=== PATIENT | male | born 1970 | race Two or more races ===

== ENCOUNTER 2022-10-05 06:20 | Emergency (ER) | payer OTHER, SELFPAY ==
--- NOTE | ~2022-10-05 | CT_ITS ---
EXAMINATION: CT HEAD WITHOUT CONTRAST CLINICAL INFORMATION: Headache COMPARISON: None available. TECHNIQUE: Contiguous axial imaging was performed from the skull base to vertex without intravenous administration of contrast. This CT examination was performed using dose optimization techniques as appropriate, variously including the following: *Automated exposure control *Adjustment of mA and/or kV according to patient size (this includes techniques or standardized protocols for targeted exams where dose is matched to indication/reason for exam; i.e. extremities or head) *Use of iterative reconstruction technique DLP: 653 mGy-cm FINDINGS: No intracranial hemorrhage, extra-axial surface collection, focal mass effect or midline shift. Atherosclerotic calcification of proximal intradural segments of vertebral arteries and cavernous carotid arteries. The patchy areas of hypoattenuation within supratentorial white matter are compatible with sequela of mild microangiopathy. The lacunar infarct in region of the proximal right crane radiata is likely old or subacute. There are no comparison head CT exams. Mild parenchymal loss with commensurate prominence of ventricles and sulci; no hydrocephalus. The cerebellum and brainstem are unremarkable. The calvarium is intact. The mastoid air cells are well aerated. Temporomandibular joints are normal. There is extensive mucosal thickening of both maxillary sinuses. Mild mucosal thickening of left sphenoid sinus and multiple bilateral ethmoid air cells. There appear to be hyperdense, inspissated secretions within the partially visualized right maxillary sinus. There are areas of mild thickening of the galea aponeurotica of the frontal and parietal scalp that require clinical correlation since these could be sequela of recent or remote trauma. There is no large scalp hematoma. CT/CT head/brain wo IV con IMPRESSION: * No evidence of intracranial mass or hemorrhage. 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 There is likely an old lacunar infarct within the right crane radiata. * Paranasal sinus disease with extensive mucosal thickening of the partially visualized maxillary sinuses. Inspissated secretions are present within the right maxillary sinus.
[2022-10-05 06:27] VITALS: BP 120/51; BP 153/80; PULSE 57; PULSE 86; RESP 16; TEMP 37; O2SAT 96; O2SAT 99; BMI 22.5
[2022-10-05 06:37] VITALS: BP 122/52; PULSE 59; RESP 18; O2SAT 99
--- NOTE | 2022-10-05 06:54 | ECG_ITS ---
Test Reason : CHEST PAIN Blood Pressure : / mmHG Vent. Rate : 053 BPM Atrial Rate : 053 BPM P-R Int : 194 ms QRS Dur : 118 ms QT Int : 454 ms P-R-T Axes : 071 090 090 degrees QTc Int : 426 ms Sinus bradycardia with frequent Premature ventricular complexes Possible Left atrial enlargement Rightward axis Left ventricular hypertrophy with Incomplete left bundle branch block Anteroseptal infarct , age undetermined Abnormal ECG No previous ECGs available Referred By: Shari Garcia Electronically Signed By:DIANA REBOLLAR MD
--- NOTE | 2022-10-05 07:23 | ED_ITS ---
HPI - General Adult General Chief complaint: Abdominal Pain Stated complaint: headache Time Seen by Provider: 10/05/22 06:30 Source: patient and RN notes reviewed Mode of arrival: ambulatory Limitations: no limitations History of Present Illness HPI narrative: This is a 52-year-old male, with a past medical history of diabetes, who presents emergency department with complaints of headache, vomiting, abdominal pain x3 days. Patient admits to having some chest pain and shortness of breath. He admits that he has not been taking his diabetic medication at home. A denies any sick contacts. He endorses diarrhea. He has had subjective fevers and chills. MD complaint: Abdominal pain, nausea, vomiting Onset (ago): day(s) Radiation: non-radiation Pain Consistency: constant Relieving factors: none Exacerbating factors: none Associated symptoms: chest pain, cough, fever/chills, headaches, loss of appetite, nausea/vomiting and shortness of breath Treatments prior to arrival: none Related Data Allergies Allergy/AdvReac Type Severity Reaction Status Date / Time No Known Allergies Allergy Unverified 01/20/20 17:14 [No Known Allergies*] Review of Systems Review of Systems: Constitutional: No Weight loss, + subjective Fevers, + Chills, No Night Sweats, No Fatigue, No Malaise ENT/Mouth: No Hearing loss, No Ear Pain, No Nasal Congestion, No Sinus Pain, No Hoarseness, No sore throat, No Rhinorrhea, No Swallowing Difficulty Eyes: No Eye Pain, No Swelling, No Redness, No Foreign Body, No Discharge, No Vision Changes Cardiovascular: + Chest Pain, + SOB, No Dyspnea on Exertion, No Orthopnea, No Edema, No Palpitations Respiratory: + Cough, No Sputum, No Wheezing, No Smoke Exposure, No Dyspnea Gastrointestinal: + Nausea, + Vomiting, + Diarrhea, No Constipation, +Abdominal pain, No Hematochezia, No Melena Genitourinary: No irregular bleeding, No Dysuria, No Urinary Frequency, No Hematuria, No Urinary Incontinence/retention, No Urgency, No Flank Pain, No Urinary Flow Changes, No Hesitancy Musculoskeletal: No joint pain, No Myalgias, No Joint Swelling Skin: No Skin Lesions, No rash Neuro: No Weakness, No Numbness, No Paresthesias, No Loss of Consciousness, No Dizziness, No Headache Psych: No Anxiety/Panic, No Depression, No SI/HI/AH/VH, No Social Issues, Heme/Lymph: No Bruising, No Bleeding,No Lymphadenopathy Endocrine: No Polyuria, No Polydipsia, No Temperature Intolerance Yes all other systems are reviewed and are negative Constitutional: Constitutional: Reports as per [facility] Social History Social History Alcohol intake: never Smoked in Last 30 Days: Yes Use of substances other than those prescribed or required for medical reasons: No Advance Directives: No Physical Exam ED Vital Signs: Vital Signs - 24 hr 10/05/22 06:27 10/05/22 06:37 10/05/22 07:30 Temperature 98.6 F Pulse Rate 57 59 53 Respiratory Rate 16 18 16 Blood Pressure 120/51 L 122/52 L 127/43 L Pulse Oximetry 99 99 Oxygen Delivery Method Room Air Room Air 10/05/22 10:00 Temperature 98.2 F Pulse Rate 57 Respiratory Rate 14 Blood Pressure 159/67 H Pulse Oximetry 95 Oxygen Delivery Method Room Air BMI result Body Mass Index 22.5 Const General: cooperative, comfortable and no acute distress Orientation/consciousness: patient oriented x3 Limitations: no limitations HENMT Head: Yes normal to inspection, Yes normocephalic and Yes atraumatic Ears: hearing grossly normal bilaterally General nose exam: Normal external nose present Face and sinus: Yes normal facial exam Mouth: oropharynx normal and mucous membranes dry (Dry mucous membranes) Throat: Yes posterior oropharynx normal Eyes General: appearance normal, both eyes and all related structures Eyelids: Yes eyelids normal Conjunctivae: conjunctivae normal Sclerae: sclerae normal Pupils: Equal, round and reactive pupils present EOM: EOMs intact bilaterally Neck Neck: Yes normal visual inspection, Yes full ROM and Yes no lymphadenopathy Lymphatic: no lymphadenopathy noted Chest Chest palpation & inspection: normal inspection of the chest Resp Other: Coarse lung sounds auscultated in the left lower lung base, no wheezes Effort & Inspection: normal respiratory effort and able to speak in complete sentences Cardio Rate: regular rate Rhythm: regular rhythm Heart sounds: S1 normal heart sound present and S2 normal heart sound present GI Inspection: Yes normal to inspection Skin General skin exam: no rashes or lesions noted Trauma: no lacerations or abrasions Wounds: no wounds Neuro General: patient oriented x3 and moves all extremities Cranial nerves: Yes Equal, round and reactive pupils present Extrem General: Yes normal to inspection Right upper extremity: normal to inspection Left upper extremity: normal to inspection Right lower extremity: normal to inspection Left lower extremity: normal to inspection Course Reevaluation(s) Reevaluation #1: Patient re-evaluated, still reporting severe head pain, moaning in pain, morphine 4mg IV and CT head ordered. Vital signs stable, central stores attendant at bed side. Time: 08:36 Reevaluation #2: Patient's pain improved after receiving morphine, 2 L of IV fluids. Patient is COVID positive today which explains his symptoms. no leukocytosis, VBG within normal limits, mildly elevated glucose at 1:48 a.m. which was nonfasting, troponin 3.3. Will not repeat second troponin as patient's symptoms have been ongoing for the last 3 days, and symptoms consistent with COVID-19 infection. Patient feeling better although still complaining of body aches and chills. Which is consistent with COVID infection, will medicate with Toradol 30 mg IM, patient is stable for discharge. CT head negative. Time: 12:17 Medications Administered Discontinued Medications Generic Name Dose Route Start Last Admin Trade Name Freq PRN Reason Stop Dose Admin Sodium Chloride 1,000 mls @ 999 mls/hr 10/05/22 06:54 10/05/22 08:54 Ns IV 10/05/22 07:54 Infused .Q1H1M ONE Infusion Sodium Chloride 1,000 mls @ 999 mls/hr 10/05/22 08:25 10/05/22 08:58 Ns IV 10/05/22 09:25 Infused .Q1H1M ONE Infusion Ketorolac Tromethamine 30 mg 10/05/22 12:04 10/05/22 12:34 Ketorolac Tromethamine 30 Mg/Ml Vial IM 10/05/22 12:05 30 mg ONCE ONE Administration Morphine Sulfate 4 mg 10/05/22 06:53 10/05/22 07:27 Morphine Sulfate 4 Mg/Ml Cartridge IVPUSH 10/05/22 06:54 4 mg ONCE ONE Administration Protocol Morphine Sulfate 4 mg 10/05/22 08:32 10/05/22 08:57 Morphine Sulfate 4 Mg/Ml Cartridge IVPUSH 10/05/22 08:33 4 mg ONCE ONE Administration Protocol Ondansetron HCl 4 mg 10/05/22 06:53 10/05/22 07:27 Ondansetron Hcl 4 Mg/2 Ml Vial IVPUSH 10/05/22 06:54 4 mg ONCE ONE Administration Ondansetron HCl 4 mg 10/05/22 12:29 10/05/22 12:34 Ondansetron Hcl 4 Mg/2 Ml Vial IVPUSH 10/05/22 12:30 4 mg ONCE ONE Administration Medical Decision Making Medical Decision Making [facility] Narrative: 52-year-old male, with a past medical history of diabetes, presenting to the emergency department for evaluation of abdominal pain, nausea, vomiting, chest pain, shortness of breath for the last 3 days. On examination, patient is mildly hypotensive at 120/51, pulse 57, respirations 16, patient afebrile oxygen saturation 99% room air. Patient moaning in stretcher, however patient is fully neurologically intact. Diffuse abdominal tenderness without any point tenderness to palpation. Normoactive bowel sounds present. Dry mucous membranes. Coarse lung sounds heard in the left lower base, will obtain chest x-ray for further evaluation of this. Plan: Labs, EKG, chest x-ray, IV fluids, morphine 4 mg IV, Zofran 4 mg IV push Differential Diagnosis Differential Diagnoses: The differential diagnosis associated with the presentation includes Gastroenteritis, gastritis, DKA, NBA, pneumonia Admission/Observation Consideration of admission/observation: Escalation of care including admis bossman/observation considered Lab Data [facility] Lab Attestation statement: I reviewed the patient's lab results. 10/05/22 07:47 10/05/22 07:47 Labs: Lab Results 10/05/22 10/05/22 10/05/22 Range/Units 07:47 07:47 07:47 WBC 6.9 (4.8-10.8) X10*3/uL RBC 5.69 (4.60-5.80) X10*6/uL Hgb 15.2 (14.0-18.0) g/dl Hct 47.1 (42.0-52.0) % MCV 82.8 (80.0-98.0) fL MCH 26.7 L (27.0-33.0) pg MCHC 32.3 (31.0-36.0) g/dl RDW 14.5 (11.0-16.0) % Plt Count 167 (160-400) X10*3/uL MPV 10.0 (9.4-12.4) fL Immature Gran % (Auto) 0.1 (0.0-0.4) % Neut % (Auto) 81.1 H (45-73) % Lymph % (Auto) 8.5 L (20-40) % [place] % (Auto) 10.2 (2-11) % Eos % (Auto) 0.0 (0-4) % Baso % (Auto) 0.1 (0-2) % Lymph # (Auto) 0.6 L (1.2-4.9) X10*3/uL [place] # (Auto) 0.7 (0.1-1.2) X10*3/uL Eos # (Auto) 0.0 (0.0-0.4) X10*3/uL Baso # (Auto) 0.0 (0.0-0.2) X10*3/uL Abs Immat Gran (auto) 0.01 (0.00-0.03) X10*3/uL Absolute Neuts (auto) 5.6 (2.0-8.3) x10*3/uL Absolute Nucleated RBC 0.000 (0.0-0.012) X10*3/uL Nucleated RBC % (auto) 0.0 (0.0-0.2) /100WBC VBG pH (7.32-7.43) VBG pCO2 mmHg VBG pO2 mmHg VBG HCO3 (22-26) mmol/L VBG O2 Saturation % VBG Base Excess mmol/L Sodium 145 (135-145) mmol/L Potassium 3.8 (3.3-5.1) mmol/L Chloride 108 (96-108) mmol/L Carbon Dioxide 28 (22-29) mmol/L Anion Gap 13 (12-20) BUN 20 H (9-16) mg/dL Creatinine 1.29 (0.5-1.4) mg/dL Estim Creat Clear Calc 56.6 Estimated GFR 58 Random Glucose 148 H (60-115) mg/dL Calcium 9.2 (8.4-10.2) mg/dL Magnesium 2.3 (1.6-2.6) mg/dL Total Bilirubin 0.5 (0.0-1.0) mg/dL Direct Bilirubin 0.1 (0.0-0.5) mg/dL AST 14 (5-37) U/L ALT 13 (0-40) U/L Alkaline Phosphatase 101 (39-117) U/L Troponin I High Sens 3.3 (<3.5-35.0) ng/L Total Protein 7.4 (6.5-8.0) g/dL Albumin 4.2 (3.5-5.0) g/dL Lipase 24 (8-78) U/L Urine Color Urine Appearance Urine pH (5.0-9.0) Ur Specific [place] (1.005-1.025) Urine Protein (Neg-Trace) mg/dL Urine Glucose (UA) (Negative) mg/dL Urine Ketones (Negative) mg/dL Urine Blood (Negative) Urine Nitrite (Negative) Ur Leukocyte Esterase (Negative) Urine RBC (0-2) /HPF Urine WBC (0-5) /HPF Ur Squamous Epith Cells (0-2) /HPF Urine Bacteria (None Seen) Hyaline Casts (0-2) /LPF Acetone, Qual Negative (Negative) Influenza Type A (PCR) (Negative) Influenza Type B (PCR) (Negative) RSV RNA Qual (PCR) (Negative) SARS-CoV-2 RNA (RT-PCR) (Negative) 10/05/22 10/05/22 10/05/22 Range/Units 07:47 07:51 09:33 WBC (4.8-10.8) X10*3/uL RBC (4.60-5.80) X10*6/uL Hgb (14.0-18.0) g/dl Hct (42.0-52.0) % MCV (80.0-98.0) fL MCH (27.0-33.0) pg MCHC (31.0-36.0) g/dl RDW (11.0-16.0) % Plt Count (160-400) X10*3/uL MPV (9.4-12.4) fL Immature Gran % (Auto) (0.0-0.4) % Neut % (Auto) (45-73) % Lymph % (Auto) (20-40) % [place] % (Auto) (2-11) % Eos % (Auto) (0-4) % Baso % (Auto) (0-2) % Lymph # (Auto) (1.2-4.9) X10*3/uL [place] # (Auto) (0.1-1.2) X10*3/uL Eos # (Auto) (0.0-0.4) X10*3/uL Baso # (Auto) (0.0-0.2) X10*3/uL Abs Immat Gran (auto) (0.00-0.03) X10*3/uL Absolute Neuts (auto) (2.0-8.3) x10*3/uL Absolute Nucleated RBC (0.0-0.012) X10*3/uL Nucleated RBC % (auto) (0.0-0.2) /100WBC VBG pH 7.40 (7.32-7.43) VBG pCO2 44 mmHg VBG pO2 43 mmHg VBG HCO3 28 H (22-26) mmol/L VBG O2 Saturation 72.0 % VBG Base Excess 2.6 mmol/L Sodium (135-145) mmol/L Potassium (3.3-5.1) mmol/L Chloride (96-108) mmol/L Carbon Dioxide (22-29) mmol/L Anion Gap (12-20) BUN (9-16) mg/dL Creatinine (0.5-1.4) mg/dL Estim Creat Clear Calc Estimated GFR Random Glucose (60-115) mg/dL Calcium (8.4-10.2) mg/dL Magnesium (1.6-2.6) mg/dL Total Bilirubin (0.0-1.0) mg/dL Direct Bilirubin (0.0-0.5) mg/dL AST (5-37) U/L ALT (0-40) U/L Alkaline Phosphatase (39-117) U/L Troponin I High Sens (<3.5-35.0) ng/L Total Protein (6.5-8.0) g/dL Albumin (3.5-5.0) g/dL Lipase (8-78) U/L Urine Color Yellow Urine Appearance Clear Urine pH 5.5 (5.0-9.0) Ur Specific [place] >= 1.030 H (1.005-1.025) Urine Protein 300 (3+) H (Neg-Trace) mg/dL Urine Glucose (UA) >=1000 H (Negative) mg/dL Urine Ketones 15 (Negative) mg/dL Urine Blood Trace H (Negative) Urine Nitrite Negative (Negative) Ur Leukocyte Esterase Negative (Negative) Urine RBC 0-2 (0-2) /HPF Urine WBC 0-5 (0-5) /HPF Ur Squamous Epith Cells 0-2 (0-2) /HPF Urine Bacteria None Seen (None Seen) Hyaline Casts 0-2 (0-2) /LPF Acetone, Qual (Negative) Influenza Type A (PCR) NEGATIVE (Negative) Influenza Type B (PCR) NEGATIVE (Negative) RSV RNA Qual (PCR) NEGATIVE (Negative) SARS-CoV-2 RNA (RT-PCR) POSITIVE A (Negative) Radiology Impression Discussion of test interpretation with radiology: I have reviewed the radiologist's reading. Radiologist Impression: EXAMINATION: CT HEAD WITHOUT CONTRAST CLINICAL INFORMATION: Headache? COMPARISON: None available. TECHNIQUE: Contiguous axial imaging was performed from the skull base to vertex without intravenous administration of contrast. This CT examination was performed using dose optimization techniques as appropriate, variously including the following: *Automated exposure control *Adjustment of mA and/or kV according to patient size (this includes techniques or standardized protocols for targeted exams where dose is matched to indication/reason for exam; i.e. extremities or head) *Use of iterative reconstruction technique DLP: 653 mGy-cm FINDINGS: No intracranial hemorrhage, extra-axial surface collection, focal mass effect or midline shift. Atherosclerotic calcification of proximal intradural segments of vertebral arteries and cavernous carotid arteries. The patchy areas of hypoattenuation within supratentorial white matter are compatible with sequela of mild microangiopathy. The lacunar infarct in region of the proximal right crane radiata is likely old or subacute. There are no comparison head CT exams. Mild parenchymal loss with commensurate prominence of ventricles and sulci; no hydrocephalus. The cerebellum and brainstem are unremarkable. The calvarium is intact. The mastoid air cells are well aerated. Temporomandibular joints are normal. There is extensive mucosal thickening of both maxillary sinuses. Mild mucosal thickening of left sphenoid sinus and multiple bilateral ethmoid air cells. There appear to be hyperdense, inspissated secretions within the partially visualized right maxillary sinus. There are areas of mild thickening of the galea aponeurotica of the frontal and parietal scalp that require clinical correlation since these could be sequela of recent or remote trauma. There is no large scalp hematoma. ? CT/CT head/brain wo IV con IMPRESSION: *? No evidence of intracranial mass or hemorrhage. *? 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 There is likely an old lacunar infarct within the right crane radiata. *? Paranasal sinus disease with extensive mucosal thickening of the partially visualized maxillary sinuses. Inspissated secretions are present within the right maxillary sinus. Dictated By: Robert Bhatia MD Signed By: <Electronically signed by Robert Bhatia MD in OV> 10/05/22 1025 DD/ 0935 TD/TT:? Histologist: External Record Review External record reviewed: Inpatient record, Office record, Outpatient record, Prior outpatient labs, Prior outpatient radiology, Primary care record and Outside ED record Discharge Plan Discharge Clinical Impression: COVID-19 Patient Disposition: Home, Self-Care Additional Instructions: You tested positive for COVID today which explains your symptoms. It is important to self isolate for the next 5 days is you are likely very contagious. Wear a mask when your around others. Please drink plenty of fluids get plenty of rest. Take ibuprofen or Tylenol as needed for your symptoms. Follow-up with your primary care physician. If any new or worsening symptoms occur please return for re-evaluation. Interventions: ED Discharge Assessment Last Done: 10/05/22 14:13 Discharge Date/Time: 10/05/22 14:14 Print Language: Filipino
[2022-10-05] MEDS: Morphine Sulfate 4 MG/ML CARTRIDGE IVPUSH ×2 (07:27→08:57)
[2022-10-05] MEDS: ondansetron HCL 4 MG/2 ML VIAL IVPUSH ×2 (07:27→12:34)
[2022-10-05] MEDS: 0.9 % Sodium Chloride 1,000 ML 999 ML IV ×2 (07:28→08:56)
[2022-10-05 07:30] VITALS: BP 127/43; PULSE 53; RESP 16
[2022-10-05 07:54] LABS: MANUAL DIFF FLAG NO
[2022-10-05 07:56] LABS: Basophils Percent Auto 0.1 % (0-2); Hematocrit 47.1 % (42.0-52.0); Hemoglobin 15.2 g/dl (14.0-18.0); Imm Gran Abs Auto 0.01 X10*3/uL (0.00-0.03); Imm Gran Pct Auto 0.1 % (0.0-0.4); Lymphocytes Absolute Auto 0.6 X10*3/uL (1.2-4.9); Lymphocytes Percent Auto 8.5 % (20-40); Mean Corpuscular HGB Conc 32.3 g/dl (31.0-36.0); Mean Corpuscular Hemoglobin 26.7 pg (27.0-33.0); Mean Corpuscular Volume 82.8 fL (80.0-98.0); Monocytes Absolute Auto 0.7 X10*3/uL (0.1-1.2); Monocytes Percent Auto 10.2 % (2-11); Neutrophils Absolute Auto 5.6 x10*3/uL (2.0-8.3); Neutrophils Percent Auto 81.1 % (45-73); Platelet Count 167 X10*3/uL (160-400); Red Blood Count 5.69 X10*6/uL (4.60-5.80); Red Cell Distribution Width 14.5 % (11.0-16.0); White Blood Count 6.9 X10*3/uL (4.8-10.8)
[2022-10-05 07:58] LABS: VBG Base Excess 2.6 mmol/L; VBG HCO3 28 mmol/L (22-26); VBG pCO2 44 mmHg; VBG pO2 43 mmHg
[2022-10-05 08:01] LABS: Venous Blood Gas Refer to POC result
[2022-10-05 08:15] LABS: Alanine Aminotransferase 13 U/L (0-40); Albumin Level 4.2 g/dL (3.5-5.0); Alkaline Phosphatase 101 U/L (39-117); Anion Gap 13 (12-20); Aspartate Amino Transferase 14 U/L (5-37); Bilirubin Direct 0.1 mg/dL (0.0-0.5); Bilirubin Total 0.5 mg/dL (0.0-1.0); Blood Urea Nitrogen 20 mg/dL (9-16); Calcium 9.2 mg/dL (8.4-10.2); Carbon Dioxide 28 mmol/L (22-29); Chloride 108 mmol/L (96-108); Creatinine Clr Calc Pharmacy 56.6; Estimated Glomerular Filt Rate 58; Glucose Random 148 mg/dL (60-115); Lipase 24 U/L (8-78); Magnesium 2.3 mg/dL (1.6-2.6); Potassium 3.8 mmol/L (3.3-5.1); Sodium 145 mmol/L (135-145); Total Protein 7.4 g/dL (6.5-8.0)
[2022-10-05 08:23] LABS: Troponin-I High Sensitivity 3.3 ng/L (<3.5-35.0)
[2022-10-05 08:27] LABS: Acetone, serum QL Negative (Negative)
[2022-10-05 08:35] LABS: Influenza A PCR NEGATIVE (Negative); Influenza B PCR NEGATIVE (Negative); Resp Syncy Virus RNA Qual PCR NEGATIVE (Negative); SARS COV2 PCR INHOUSE POSITIVE (Negative)
[2022-10-05 09:44] LABS: Appearance Urine Clear; Color Urine Yellow; Glucose Urine UA >=1000 mg/dL (Negative); Leukocyte Esterase Urine Negative (Negative); Nitrite Urine Negative (Negative); PH 5.5 (5.0-9.0); UMIC TRIGGER UACC YES; Urine Blood Trace (Negative); Urine Ketones 15 mg/dL (Negative); Urine Protein 300 (3+) mg/dL (Neg-Trace)
--- NOTE | 2022-10-05 09:52 | PC.NURSE ---
pt c/o 02/11 abd pain/n/v/d. he says that he has not been able to hold anything down for a few days. no exposure to anyone sick. 20g iv inserted prior to this rn's arrival on shift, line patent. meds given per ordered.
[2022-10-05 10:00] VITALS: BP 159/67; PULSE 57; RESP 14; TEMP 36.8; O2SAT 95
[2022-10-05 10:13] LABS: Bacteria Urine None Seen (None Seen); Hyaline Casts Urine 0-2 /LPF (0-2); RBC Urine 0-2 /HPF (0-2); Squamous Epithelial Cell Urine 0-2 /HPF (0-2); WBC Urine 0-5 /HPF (0-5)
[2022-10-05 10:14] LABS: Specific Gravity - Urine >= 1.030 (1.005-1.025)
[2022-10-05] MEDS: Ketorolac Tromethamine 30 MG/ML VIAL IM (12:34)
== END 2022-10-05 14:14 | disposition home or self-care (01) ==
PROVIDERS: Physician Assistant Medical; Emergency Provider Emergency Medicine
DX: R07.89 Other chest pain (principal); R51.9 Headache, unspecified; R50.9 Fever, unspecified; Z20.822 Contact with and (suspected) exposure to COVID-19; Z20.828 Contact with and (suspected) exposure to other viral communicable diseases; Z79.899 Other long term (current) drug therapy
CPT/HCPCS: 0241U; 36415; 70450; 80048; 80076; 81001; 82009; 82803; 83690; 83735; 84484; 85025; 93005; 96361; 96372; 96374; 96375; 96376; 99284; 99285; J1885; J2270; J2405

== ENCOUNTER 2024-05-27 01:50 | Emergency (ER) | payer OTHER, SELFPAY ==
--- NOTE | 2024-05-27 | ECG_ITS ---
Test Reason : CHEST PAIN Blood Pressure : */* mmHG Vent. Rate : 63 BPM Atrial Rate : 63 BPM P-R Int : 188 ms QRS Dur : 120 ms QT Int : 432 ms P-R-T Axes : 64 84 79 degrees QTcB Int : 442 ms Normal sinus rhythm Possible Left atrial enlargement Left ventricular hypertrophy with QRS widening ( [place] product ) Anterior infarct (cited on or before 05-Oct-2022) Abnormal ECG When compared with ECG of 05-Oct-2022 07:02, Premature ventricular complexes are no longer Present Referred By: Generic ED Physician Electronically Signed By: DIANA REBOLLAR MD
--- NOTE | ~2024-05-27 | XR_ITS ---
CLINICAL HISTORY: dyspnea 1 view chest x-ray Comparison: CR - RIBS RIGHT PA CHEST [id number] - 10/05/17 12:30 EDT Findings: The lungs are clear. Normal size heart. No acute fracture. IMPRESSION: 1. No acute findings. This document has been electronically signed by: Lon Jang MD on 05/27/2024 03:05:16
[2024-05-27 01:52] VITALS: BP 158/67; PULSE 96; O2SAT 98
[2024-05-27 02:05] VITALS: BP 115/51; PULSE 63; RESP 18; TEMP 36.7; O2SAT 96; BMI 25.2
[2024-05-27 02:08] VITALS: BP 115/51; PULSE 63; RESP 18; TEMP 36.7; O2SAT 96
[2024-05-27 02:34] LABS: Basophils Percent Auto 0.3 % (0-2); Eosinophils Absolute Auto 0.1 X10*3/uL (0.0-0.4); Eosinophils Percent Auto 1.9 % (0-4); Hematocrit 37.1 % (42.0-52.0); Hemoglobin 12.4 g/dl (14.0-18.0); Imm Gran Abs Auto 0.01 X10*3/uL (0.00-0.03); Imm Gran Pct Auto 0.1 % (0.0-0.4); Lymphocytes Absolute Auto 1.8 X10*3/uL (1.2-4.9); Lymphocytes Percent Auto 23.9 % (20-40); MANUAL DIFF FLAG NO; Mean Corpuscular HGB Conc 33.4 g/dl (31.0-36.0); Mean Corpuscular Volume 80.8 fL (80.0-98.0); Mean Platelet Volume 10.1 fL (9.4-12.4); Monocytes Absolute Auto 0.4 X10*3/uL (0.1-1.2); Monocytes Percent Auto 5.6 % (2-11); Neutrophils Absolute Auto 5.1 x10*3/uL (2.0-8.3); Neutrophils Percent Auto 68.2 % (45-73); Platelet Count 158 X10*3/uL (160-400); Red Blood Count 4.59 X10*6/uL (4.60-5.80); Red Cell Distribution Width 14.9 % (11.0-16.0); White Blood Count 7.5 X10*3/uL (4.8-10.8)
[2024-05-27 02:56] LABS: Alanine Aminotransferase 7 U/L (0-40); Albumin Level 3.6 g/dL (3.5-5.0); Alkaline Phosphatase 69 U/L (39-117); Anion Gap 12 (12-20); Aspartate Amino Transferase 19 U/L (5-37); Bilirubin Total 0.3 mg/dL (0.0-1.0); Blood Urea Nitrogen 19 mg/dL (9-16); Calcium 8.8 mg/dL (8.4-10.2); Carbon Dioxide 23 mmol/L (22-29); Chloride 111 mmol/L (96-108); Creatinine Clr Calc Pharmacy 70.7; Estimated Glomerular Filt Rate > 60; Glucose Random 77 mg/dL (60-115); Potassium 3.5 mmol/L (3.3-5.1); Sodium 142 mmol/L (135-145); Total Protein 6.6 g/dL (6.5-8.0)
[2024-05-27 03:11] LABS: Influenza A PCR NEGATIVE (Negative); Influenza B PCR NEGATIVE (Negative); Resp Syncy Virus RNA Qual PCR NEGATIVE (Negative); SARS COV2 PCR INHOUSE NEGATIVE (Negative)
[2024-05-27 04:34] VITALS: BP 125/59; PULSE 58; RESP 21; TEMP 37.2; O2SAT 100
[2024-05-27 05:37] LABS: Troponin-I High Sensitivity 5.5 ng/L (<3.5-35.0)
--- NOTE | 2024-05-27 06:27 | ED_ITS ---
HPI - Chest Pain General Chief Complaint: Chest Pain Stated Complaint: CP x 2hrs hx of HTN & diabetes Time Seen by Provider: 05/27/24 06:27 History of Present Illness ED Provider: Juvencio SEVERINO narrative: The patient is a 53-year-old male who arrived here by ambulance complaining of pressure-like chest pain that began 2 hours before arrival. He describes the discomfort as a pressure ?like an elephant on my chest. ?. The patient says that he has been having symptoms like this frequently during the last month. He says the symptoms tend to be most prominent at night. The pain is worse when he lies down he says. He says that he is on omeprazole already. No fever, sweats, chills. No cough or sputum. Related Data Previous Rx's ?Medication ?Instructions ?Recorded sucralfate 1 gram tablet 1 g PO BID PRN Chest discomfort 05/27/24 #30 tabs Allergies Allergy/AdvReac Type Severity Reaction Status Date / Time No Known Allergies Allergy Verified 05/27/24 02:08 [No Known Allergies*] Review of Systems 2 Review of Systems: Yes all other systems are reviewed and are negative [facility] Social History Social History Alcohol intake: never Smoked in Last 30 Days: No Use of substances other than those prescribed or required for medical reasons: Yes Substance Use Type: Marijuana Advance Directives: No Advance Directives Information Provided: Yes Physical Exam 2 Vital Signs: Vital Signs: Last Vital Signs Temp 97.8 F 05/27/24 07:57 Pulse 66 05/27/24 07:57 Resp 16 05/27/24 07:57 BP 137/74 05/27/24 07:57 Pulse Ox 97 05/27/24 07:57 O2 Del Method Room Air 05/27/24 07:57 BMI result Body Mass Index 25.2 Const: Other: The patient was sleeping. I was able to wake him up fairly easily. He awoke to a normal mental status. He did not appear in any distress. HEENT: Other: Face is symmetrical. Mucous membranes moist. Eyes: General: appearance normal, both eyes and all related structures C onjunctivae: conjunctivae normal EOM: EOMs intact bilaterally Neck: Neck: Yes full ROM and Yes no JVD Resp: Effort & Inspection: normal respiratory effort Auscultation: clear to auscultation bilaterally Cardio: Rate: regular rate Rhythm: regular rhythm Heart sounds: S1 normal heart sound present and S2 normal heart sound present GI: Other: Abdomen is soft and nontender Skin: General skin exam: no rashes or lesions noted Neuro: Other: The patient was asleep. He awoke easily with gentle stimulation. He awoke to a normal mental status. Cranial nerves are grossly intact. He moves his extremities normally and seems grossly neurologically intact. Extrem: Other: No calf swelling or tenderness, no peripheral edema, no asymmetry. Medications Administered Discontinued Medications Generic Name Dose Route Start Last Admin Trade Name Dilcia PRN Reason Stop Dose Admin Sucralfate 2 gm 05/27/24 06:40 05/27/24 06:57 Sucralfate Oral Suspension 1 Gm/10 Ml Oral.Susp PO 05/27/24 06:41 2 gm ONCE ONE Administration Medical Decision Making Medical Decision Making [facility] Narrative: The patient presents complaining of a pressure-like discomfort that he says he has been having for a month. He states that the symptoms are worse when he lies down. The patient says that his son drove him to the emergency room tonight. he does not appear acutely ill in any way. He seemed to be sleeping comfortably when I awoke him to interview him. He did not seem in discomfort or any kind of distress during the interview. His EKG shows normal sinus rhythm at 63 beats per minute. It is an abnormal EKG but similar to his previous EKG. His troponins are flat. His chest x-ray is clear. His vital signs are unremarkable. His physical exam seems reassuring. Based on his description of the symptoms being worse when he lies down I thought that perhaps he was experiencing acid reflux. he was given a dose of liquid sucralfate. At 1st the patient said this did not seem to help and he was concerned about his ongoing discomfort. At that point I told him we could check a D-dimer to make sure he did have a blood clot even though I had no significant clinical suspicion for a pulmonary embolism. At 1st the patient seemed to welcome further investigations but then he approached me before his additional blood was drawn and said that he was feeling better that he was happy going home. I will write him a prescription for sucralfate. He should follow up with his PCP. He should return if worse. Lab Data 05/27/24 02:28 05/27/24 02:28 Labs: Lab Results 05/27/24 05/27/24 05/27/24 Range/Units 02:27 02:28 05:11 WBC 7.5 (4.8-10.8) X10*3/uL RBC 4.59 L (4.60-5.80) X10*6/uL Hgb 12.4 L (14.0-18.0) g/dl Hct 37.1 L D (42.0-52.0) % MCV 80.8 (80.0-98.0) fL MCH 27.0 (27.0-33.0) pg MCHC 33.4 (31.0-36.0) g/dl RDW 14.9 (11.0-16.0) % Plt Count 158 L (160-400) X10*3/uL MPV 10.1 (9.4-12.4) fL Immature Gran % (Auto) 0.1 (0.0-0.4) % Neut % (Auto) 68.2 (45-73) % Lymph % (Auto) 23.9 (20-40) % Loup % (Auto) 5.6 (2-11) % Eos % (Auto) 1.9 (0-4) % Baso % (Auto) 0.3 (0-2) % Lymph # (Auto) 1.8 (1.2-4.9) X10*3/uL Loup # (Auto) 0.4 (0.1-1.2) X10*3/uL Eos # (Auto) 0.1 (0.0-0.4) X10*3/uL Baso # (Auto) 0.0 (0.0-0.2) X10*3/uL Abs Immat Gran (auto) 0.01 (0.00-0.03) X10*3/uL Absolute Neuts (auto) 5.1 (2.0-8.3) x10*3/uL Absolute Nucleated RBC 0.000 (0.0-0.012) X10*3/uL Nucleated RBC % (auto) 0.0 (0.0-0.2) /100WBC Sodium 142 (135-145) mmol/L Potassium 3.5 (3.3-5.1) mmol/L Chloride 111 H (96-108) mmol/L Carbon Dioxide 23 (22-29) mmol/L Anion Gap 12 (12-20) BUN 19 H (9-16) mg/dL Creatinine 0.95 (0.5-1.4) mg/dL Estim Creat Clear Calc 70.7 Estimated GFR > 60 Random Glucose 77 (60-115) mg/dL Calcium 8.8 (8.4-10.2) mg/dL Total Bilirubin 0.3 (0.0-1.0) mg/dL AST 19 (5-37) U/L ALT 7 (0-40) U/L Alkaline Phosphatase 69 (39-117) U/L Troponin I High Sens 5.0 D 5.5 (<3.5-35.0) ng/L Total Protein 6.6 (6.5-8.0) g/dL Albumin 3.6 (3.5-5.0) g/dL Influenza Type A (PCR) NEGATIVE (Negative) Influenza Type B (PCR) NEGATIVE (Negative) RSV RNA Qual (PCR) NEGATIVE (Negative) SARS-CoV-2 RNA (RT-PCR) NEGATIVE (Negative) Discharge Plan Discharge Clinical Impression: Chest pressure Patient Disposition: Home, Self-Care Additional Instructions: Your testing today seems very reassuring. There is no sign of a heart attack or other dangerous process. It is possible that your symptoms in your chest could be from reflux of acid from your stomach up into your esophagus. Please continue your omeprazole. I have sent a prescription for a medication called sucralfate that you may take up to 2 times a day as needed for this chest discomfort. It may be helpful. Please contact your primary care doctor's office today to set up a follow up appointment next week to discuss this further. Return to the emergency department if you feel significantly worse. Prescriptions: New sucralfate 1 gram tablet 1 g PO BID PRN (Reason: Chest discomfort) Qty: 30 0RF Referrals: [facility] [Provider Group] (Chest pressure for over a month) Interventions: ED Discharge Assessment Last Done: 05/27/24 07:57 Discharge Date/Time: 05/27/24 07:57 Print Language: Maldivian
[2024-05-27] MEDS: Sucralfate Oral Suspension 1 GM/10 ML ORAL.SUSP 2 GM PO (06:57)
[2024-05-27 07:51] VITALS: BP 137/74; PULSE 66; RESP 16; O2SAT 97
[2024-05-27 07:57] VITALS: BP 137/74; PULSE 66; RESP 16; TEMP 36.6; O2SAT 97
== END 2024-05-27 07:57 | disposition home or self-care (01) ==
PROVIDERS: Emergency Provider Emergency Medicine; PCP Internal Medicine
DX: R07.9 Chest pain, unspecified (principal); R06.00 Dyspnea, unspecified; Z03.818 Encounter for observation for suspected exposure to other biological agents ruled out
CPT/HCPCS: 0241U; 36415; 71045; 80053; 84484; 85025; 93005; 99283; 99284

== ENCOUNTER → 2024-05-27 01:58 | Outpatient (BNV) | payer OTHER, SELFPAY | PROVIDERS: Emergency Provider Emergency Medicine; PCP Internal Medicine; Visit Provider Internal Medicine Cardiovascular Disease | DX: R94.31 Abnormal electrocardiogram [ECG] [EKG] (principal) | CPT/HCPCS: 93010 ==

== ENCOUNTER → 2024-05-27 02:20 | Outpatient (BNV) | payer OTHER, SELFPAY | PROVIDERS: Visit Provider Radiology Diagnostic Radiology | DX: R06.00 Dyspnea, unspecified (principal) | CPT/HCPCS: 71045 ==

== ENCOUNTER 2024-11-01 12:45 | Emergency (ER) | payer OTHER, SELFPAY ==
[2024-11-01 12:55] VITALS: BP 115/81; BP 118/74; PULSE 50; PULSE 55; RESP 18; TEMP 36.2; O2SAT 100; O2SAT 98; BMI 23.6
[2024-11-01 13:06] LABS: Glucose, Whole Blood 48 mg/dL (60-115)
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
--- NOTE | 2024-11-01 13:16 | ECG_ITS ---
Test Reason : SYNCOPE Blood Pressure : */* mmHG Vent. Rate : 57 BPM Atrial Rate : 57 BPM P-R Int : 198 ms QRS Dur : 124 ms QT Int : 460 ms P-R-T Axes : 60 81 97 degrees QTcB Int : 447 ms Sinus bradycardia Possible Left atrial enlargement Left ventricular hypertrophy with QRS widening ( Wesley product ) Nonspecific T wave abnormality Abnormal ECG When compared with ECG of 27-May-2024 01:58, No significant change was found Referred By: Kory Jane Electronically Signed By: DIANA REBOLLAR MD
[2024-11-01 13:43] LABS: MANUAL DIFF FLAG NO
[2024-11-01 13:43] LABS: Glucose, Whole Blood 46 mg/dL (60-115)
[2024-11-01 13:44] LABS: Basophils Percent Auto 0.2 % (0-2); Eosinophils Absolute Auto 0.1 X10*3/uL (0.0-0.4); Eosinophils Percent Auto 1.1 % (0-4); Hematocrit 42.5 % (42.0-52.0); Hemoglobin 14.1 g/dl (14.0-18.0); Imm Gran Abs Auto 0.04 X10*3/uL (0.00-0.03); Imm Gran Pct Auto 0.4 % (0.0-0.4); Lymphocytes Absolute Auto 1.5 X10*3/uL (1.2-4.9); Mean Corpuscular HGB Conc 33.2 g/dl (31.0-36.0); Mean Corpuscular Hemoglobin 27.1 pg (27.0-33.0); Mean Corpuscular Volume 81.7 fL (80.0-98.0); Mean Platelet Volume 9.5 fL (9.4-12.4); Monocytes Absolute Auto 0.5 X10*3/uL (0.1-1.2); Monocytes Percent Auto 4.5 % (2-11); Neutrophils Absolute Auto 8.8 x10*3/uL (2.0-8.3); Neutrophils Percent Auto 79.8 % (45-73); Platelet Count 236 X10*3/uL (160-400); Red Cell Distribution Width 14.3 % (11.0-16.0)
[2024-11-01] MEDS: Dextrose 5 % and 0.45 % NaCl 1,000 ML 175 ML IVCONT (14:01)
--- NOTE | 2024-11-01 14:02 | PC.NURSE ---
POC reassessed s/p OJ w/ sugar, crackers, and turkey sandwich consumption. repeat POC = 46mg/dL. provider notified/aware. pt remains awake/alert/oriented. pt provided w/ additional OJ w/ sugar for consumption. D5 1/2 NS now infusing @ 175mls/hr at this time. effectiveness pending. plan of care ongoing. call bales placed within reach.
[2024-11-01 14:10] LABS: Alanine Aminotransferase 19 U/L (0-40); Albumin Level 4.4 g/dL (3.5-5.0); Alkaline Phosphatase 91 U/L (39-117); Anion Gap 12 (12-20); Aspartate Amino Transferase 22 U/L (5-37); Bilirubin Total 0.4 mg/dL (0.0-1.0); Blood Urea Nitrogen 14 mg/dL (9-16); Calcium 9.2 mg/dL (8.4-10.2); Carbon Dioxide 25 mmol/L (22-29); Chloride 108 mmol/L (96-108); Creatinine Clr Calc Pharmacy 65.2; Estimated Glomerular Filt Rate > 60; Glucose Random 25 mg/dL (60-115); Sodium 141 mmol/L (135-145); Total Protein 7.7 g/dL (6.5-8.0)
[2024-11-01 14:20] LABS: Thyroid Stimulating Hormone 0.62 uIU/mL (0.32-4.0)
[2024-11-01 14:39] VITALS: BP 110/50; PULSE 66; RESP 18; O2SAT 96
[2024-11-01 15:00] LABS: Glucose, Whole Blood 111 mg/dL (60-115)
--- NOTE | 2024-11-01 15:03 | PC.NURSE ---
patient remains awake, alert and oriented. requesting apple juice and ubaldo crackers. repeat poc 137. call bales within reach
[2024-11-01 15:06] LABS: Glucose, Whole Blood 137 mg/dL (60-115)
[2024-11-01 16:00] VITALS: BP 96/78; PULSE 75; RESP 18; TEMP 36.8; O2SAT 98
[2024-11-01 16:23] LABS: Glucose, Whole Blood 252 mg/dL (60-115)
--- NOTE | 2024-11-01 16:43 | PC.NURSE ---
fluids paused per verbal order from provider d/t poc 252. plan to repeat POC in 1 hr
[2024-11-01 17:57] LABS: Glucose, Whole Blood 234 mg/dL (60-115)
[2024-11-01 18:17] VITALS: BP 111/44; PULSE 74; RESP 12; TEMP 36.8; O2SAT 96
[2024-11-01 18:47] LABS: Glucose, Whole Blood 237 mg/dL (60-115)
[2024-11-01 19:00] VITALS: BP 111/44; PULSE 74; RESP 12; TEMP 36.8; O2SAT 96
== END 2024-11-01 19:00 | disposition home or self-care (01) ==
PROVIDERS: Emergency Provider Emergency Medicine
DX: Z04.1 Encounter for examination and observation following transport accident (principal); E11.649 Type 2 diabetes mellitus with hypoglycemia without coma; R42 Dizziness and giddiness
CPT/HCPCS: 36415; 80053; 82947; 84443; 85025; 93005; 96360; 96361; 99284

== ENCOUNTER → 2024-11-01 13:16 | Outpatient (BNV) | payer OTHER, SELFPAY | PROVIDERS: Emergency Provider Emergency Medicine; Visit Provider Internal Medicine Cardiovascular Disease | DX: I51.7 Cardiomegaly (principal); R00.1 Bradycardia, unspecified | CPT/HCPCS: 93010 ==